=== PATIENT | female | born 1945 | race Hispanic/Latino ===

== ENCOUNTER → 2019-01-29 | Outpatient (CLI) | payer OTHER ==
[~2019-01-29] MED LIST: ALEN70TA10 PO; CALC-866 PO; METO-408 PO; OMEP40CA37 PO
== END | disposition home or self-care (01) ==
LOC: SHCH 10:29
PROVIDERS: ATTEND Internal Medicine Cardiovascular Disease
DX: R60.9 Edema, unspecified (principal)
CPT/HCPCS: 93970

== ENCOUNTER → 2019-01-30 | Outpatient (CLI) | payer OTHER ==
[~2019-01-30] MED LIST changes: +LISI-613 PO; +LORA10TA7 PO; +METO-391 PO; +NAPR-1192 PO
== END | disposition home or self-care (01) ==
LOC: SHCH 13:09
PROVIDERS: ATTEND Internal Medicine Cardiovascular Disease
DX: I10 Essential (primary) hypertension (principal); R07.9 Chest pain, unspecified
CPT/HCPCS: 93306

== ENCOUNTER 2019-02-06 10:14 | Day surgery (SDC) | payer OTHER ==
[2019-02-04 13:51] LABS: BASOPHILS % (AUTO) 0.8 % (0.0-5.0); EOSINOPHILS % (AUTO) 0.6 % (0.0-8.0); HEMATOCRIT 39.9 % (36-48); LYMPHOCYTES % (AUTO) 16.7 % (21.0-51.0); MEAN CORPUSCULAR HEMOGLOBIN 33.9 pg (27.0-33.0); MEAN CORPUSCULAR VOLUME 99.9 fL (79-99); NEUTROPHILS % (AUTO) 72.9 % (40.0-77.0); PLATELET COUNT (AUTO) 226 K/uL (130-400); RED BLOOD CELL COUNT(AUTO) 3.99 MIL/uL (4.00-5.50); RED CELL DISTRIBUTION WIDTH 14.5 % (11.0-15.5); WHITE BLOOD COUNT (AUTO) 10.8 K/uL (4.8-10.8)
[2019-02-04 13:58] LABS: CREATININE 0.9 mg/dL (0.5-1.5); POTASSIUM 3.8 mmol/L (3.5-5.1)
[2019-02-04 13:59] VITALS: BP 164/79
[2019-02-04 14:01] LABS: APPEARANCE,URINE Clear (CLEAR); BILIRUBIN,URINE Negative (NEGATIVE); COLOR,URINE Yellow (YELLOW); GLUCOSE, URINE (UA) Negative (NEGATIVE); KETONES,URINE Negative (NEGATIVE); LEUKOCYTE ESTERASE ,URINE Trace (NEGATIVE); NITRATE,URINE Negative (NEGATIVE); OCCULT BLOOD,URINE Negative (NEGATIVE); PROTEIN,URINE Negative (NEGATIVE); UROBILINOGEN,URINE 0.2 mg/dL (0.2-1.0)
[2019-02-04 14:06] LABS: INR 0.98 (0.85-1.15); PARTIAL THROMBOPLASTIN TIME 26.2 SEC (26.3-35.5); PROTHROMBIN TIME 10.3 SEC (9.6-11.6)
[2019-02-04 14:07] LABS: BACTERIA,URINE Rare /HPF (None Seen); MUCUS,URINE Rare LPF (None Seen); RBC,URINE 0-1 /HPF (0-1); SQUAMOUS EPITHELIAL CELL,UR Rare /HPF (0-2); WBC,URINE 0-1 /HPF (0-1)
[2019-02-06] VITALS (8 sets, daily range): BP systolic 128–151; BP diastolic 65–75
[~2019-02-06] VITALS: Ht 147.3 cm; Wt 78.3 kg
[~2019-02-06 10:14] MED LIST changes: -CALC-866 PO; -METO-408 PO
[2019-02-06] MEDS ORDERED: IOHEXOL-350 75 ML VIAL IV ONE (13:12)
[2019-02-06] MEDS ORDERED: NITROGLYCERIN 5 MG/ML 10 ML VIAL IV ONE (13:12)
[2019-02-06] MEDS ORDERED: IOHEXOL-350 50ML VIAL IV ONE (13:12)
[2019-02-06] MEDS ORDERED: LIDOCAINE HCL 1% 20 ML VIAL ONE (13:12)
[2019-02-06] MEDS ORDERED: FENTANYL CITRATE PF 50 MCG/1 ML 2ML VIAL ONE (13:13)
[2019-02-06] MEDS ORDERED: MIDAZOLAM HCL 1 MG/ML 2ML VIAL ONE (13:13)
[2019-02-06] MEDS ORDERED: VERAPAMIL HCL 2.5 MG/ML VIAL ONE (13:48)
[2019-02-06] MEDS ORDERED: HEPARIN SODIUM 1000UNIT/ML 10ML VIAL ONE (13:49)
[2019-02-06] MEDS ORDERED: SODIUM CHLORIDE 0.9% 1000ML 1,000 ML IV SCH (14:27)
--- NOTE | 2019-02-06 15:33 | NUR ---
NURSING: AT 1533 CALLED SPOKE TO Vanessa LOPEZ FOR DR. RODRIGUEZ TO PETER IV FLUIDS DURATION AND D/C TIME, WAS INSTRUCTED PT CAN BE D/C AFTER 2 HOURS OF IV FLUID.
--- NOTE | 2019-02-06 18:05 | NUR ---
NURSING: PT IS AAOX3, NO C/O PAIN TO RT WRIST, PT ABLE TO SIT AT BEDSIDE, TOLERATED FLUIDS. RT GROIN DRESSING IS D/I NO ACTIVE BLEEDING OR HEMATOMA. RT WRIST WRAPPING WITH DRESSING, D/I, SOME SMALL BRUISING NOTED, DR. RODRIGUEZ AWARE WHEN PT ARRIVED TO ROOM S/P PROCEDURE, STATED PT WOULD HAVE SMALL BRUISE TO RT WRIST. POST CARE INSTRUCTIONS GIVEN TO PT DAUGHTER AND EMERGENCY INSTRUCTIONS INCASE OF ACTIVE BLEEDING TO RADIAL SITE. PT AND DAUGHTER BOTH VERBALIZED UNDERSTANDING. PT DRESS WITH ASSISTANCE, TAKEN OUT IN A WHEELCHAIR, DRIVEN HOME BY FAMILY.
== END 2019-02-06 18:05 | disposition home or self-care (01) ==
LOC: DAH 10:14
PROVIDERS: ATTEND Internal Medicine Cardiovascular Disease
DX: R07.89 Other chest pain (principal); I11.0 Hypertensive heart disease with heart failure; I50.22 Chronic systolic (congestive) heart failure; K21.9 Gastro-esophageal reflux disease without esophagitis; M19.90 Unspecified osteoarthritis, unspecified site; M81.0 Age-related osteoporosis without current pathological fracture; G25.81 Restless legs syndrome; I87.2 Venous insufficiency (chronic) (peripheral); Z96.652 Presence of left artificial knee joint; Z90.49 Acquired absence of other specified parts of digestive tract; Z90.710 Acquired absence of both cervix and uterus; Z98.890 Other specified postprocedural states; Z79.899 Other long term (current) drug therapy; Z80.0 Family history of malignant neoplasm of digestive organs
CPT/HCPCS: 36415; 71045; 80048; 81001; 85025; 85610; 85730; 93005; 93460; A4606; C1769 ×2; C1894 ×3; J1644 ×2; J2250; J3010; J3490 ×2; Q9967 ×2; 99156; 99157

== ENCOUNTER → 2019-03-16 | Outpatient (CLI) | payer OTHER | END | disposition home or self-care (01) | LOC: SLP 20:44 | PROVIDERS: ATTEND Family Medicine | DX: G47.33 Obstructive sleep apnea (adult) (pediatric) (principal); I10 Essential (primary) hypertension | CPT/HCPCS: 95810 ==

== ENCOUNTER → 2019-03-26 | Outpatient (CLI) | payer OTHER ==
[~2019-03-26] MED LIST changes: +OMEP40CA13 PO; -OMEP40CA37 PO
== END | disposition home or self-care (01) ==
LOC: SLP 20:30
PROVIDERS: ATTEND Family Medicine
DX: G47.33 Obstructive sleep apnea (adult) (pediatric) (principal); I10 Essential (primary) hypertension
CPT/HCPCS: 95811